=== PATIENT | female | born 1930 | race Asian ===

== ENCOUNTER 2016-09-11 08:16 | Inpatient (IN) | payer MEDICARE, MEDICAID ==
[~2016-09-11] VITALS: Ht 152.4 cm; Wt 76.9 kg
[~2016-09-11 08:16] MED LIST: AMLO5TAB66 PO; FENO48TA4 PO; INSU100C4 SQ; INSU100C6 SQ; LOSA1TAB40 PO; METO-323 PO; OMEP20CA10 PO; PRAV20TA4 PO; SPIR25TA4 PO
[2016-09-11 08:37] LABS: GLUCOSE,POINT OF CARE 294 MG/DL (70-110)
[2016-09-11] MEDS ORDERED: FURO40 PO (08:45)
[2016-09-11] MEDS ORDERED: GABA-529 PO (08:45)
[2016-09-11] MEDS ORDERED: RANI150T7 PO (08:45)
[2016-09-11] MEDS ORDERED: ALBUTEROL SULFATE 2.5 MG/0.5 ML NEB SOLUTION NEB ONE (09:15)
[2016-09-11] MEDS ORDERED: IPRATROPIUM BROMIDE 0.5 MG/2.5 ML NEB SOLUTION NEB ONE (09:15)
[2016-09-11 09:42] LABS: BASOPHILS % (AUTO) 0.3 % (0.0-2.0); EOSINOPHILS % (AUTO) 0.8 % (1.0-6.0); HEMATOCRIT 32.9 % (36-46); HEMOGLOBIN 10.7 g/dL (12.0-16.0); LYMPHOCYTES # (AUTO) 0.8 K/uL (1.0-4.8); LYMPHOCYTES % (AUTO) 8.4 % (22.0-44.0); MEAN CORPUSCULAR HEMOGLOBIN 29.4 pg (26.0-34.0); MEAN CORPUSCULAR HGB CONC 32.6 G/dL (31.0-37.0); MEAN CORPUSCULAR VOLUME 90 fL (80-100); MONOCYTES % (AUTO) 11.1 % (2.0-9.0); NEUTROPHILS # (AUTO) 7.2 K/uL (1.8-7.7); NEUTROPHILS % (AUTO) 79.4 % (40.0-70.0); PLATELET COUNT (AUTO) 254 K/uL (150-450); RED BLOOD CELL COUNT(AUTO) 3.66 MIL/uL (4.00-5.20); WHITE BLOOD COUNT (AUTO) 9.1 K/uL (4.5-11.0)
[2016-09-11 09:57] LABS: CALCIUM, TOTAL 9.1 mg/dL (8.8-10.5); CREATININE 2.45 mg/dL (0.60-1.30); POTASSIUM 4.1 mmol/L (3.5-5.1)
[2016-09-11 10:02] LABS: BILIRUBIN,TOTAL 0.8 mg/dL (0.1-1.0)
[2016-09-11 10:03] LABS: APPEARANCE,URINE CLEAR (CLEAR); GLUCOSE, URINE (UA) >=1000 mg/dL (NEGATIVE); KETONES,URINE NEGATIVE (NEGATIVE); LEUKOCYTE ESTERASE ,URINE NEGATIVE (NEGATIVE); OCCULT BLOOD,URINE SMALL (NEGATIVE); PROTEIN,URINE SEE CONFIRM (NEGATIVE)
[2016-09-11 10:34] LABS: ADD UA MICROSCOPIC YES
[2016-09-11 10:40] LABS: RBC,URINE 0-2 /HPF (0-2)
[2016-09-11 10:41] LABS: WBC,URINE 0-2 /HPF (0-5)
[2016-09-11 10:42] LABS: SQUAMOUS EPITHELIAL CELL,UR Rare /LPF (None Seen); SULFOSALICYLIC ACID,URINE 2+ (Negative)
[2016-09-11] MEDS ORDERED: LEVOFLOXACIN 750 MG/D5% WATER 150 ML IV ONE (13:15)
[2016-09-11 13:57] LABS: INFLUENZA TYPE B NEGATIVE FOR TYPE B (NEGATIVE)
[2016-09-11] MEDS ORDERED: FUROSEMIDE 40 MG/4 ML VIAL IVP ONE (15:00)
[2016-09-11] MEDS ORDERED: NITROGLYCERIN 2% (1 GM=INCH) PACKET TP ONE (15:00)
[2016-09-11] MEDS ORDERED: AZITHROMYCIN 250 MG in SODIUM CHLORIDE 0.9% 150 ML IV SCH (15:15)
[2016-09-11] MEDS ORDERED: ONDANSETRON HCL 4 MG/2 ML VIAL IVP PRN ×2 (15:45→17:00)
[2016-09-11] MEDS ORDERED: ACETAMINOPHEN 325 MG TABLET PO PRN ×2 (15:45→17:00)
[2016-09-11] MEDS ORDERED: INSULIN ASPART 100 UNITS/ML SQ PRN (15:45)
[2016-09-11] MEDS ORDERED: 0.9% SODIUM CHLORIDE 10 ML SYRINGE IVP PRN ×3 (15:45→17:00)
[2016-09-11] MEDS ORDERED: DEXTROSE 50%-WATER 25 GM/50 ML SYRINGE IVP PRN (15:45)
[2016-09-11 16:01] VITALS: BP 141/69
[2016-09-11] MEDS ORDERED: SODIUM CHLORIDE 0.9% 100 ML ONE (16:50)
[2016-09-11] MEDS: CefTRIAXone 1 GM/DEXTROSE 50 ML IV SCH (16:53)
[2016-09-11] MEDS ORDERED: IPRATROPIUM BROMIDE 0.5 MG/2.5 ML NEB SOLUTION NEB PRN (17:00)
[2016-09-11] MEDS ORDERED: HYDROCODONE/ACETAMINOPHEN 5-325 MG TABLET PO PRN (17:00)
[2016-09-11] MEDS ORDERED: CefTRIAXone 1 GM/DEXTROSE 50 ML IV SCH (17:00)
[2016-09-11] MEDS ORDERED: ALBUTEROL SULFATE 2.5 MG/0.5 ML NEB SOLUTION NEB PRN (17:00)
[2016-09-11] MEDS ORDERED: BENZONATATE 100 MG CAPSULE PO PRN (17:00)
[2016-09-11] MEDS ORDERED: ZOLPIDEM TARTRATE 5 MG TABLET PO PRN (17:00)
[2016-09-11] MEDS ORDERED: AZITHROMYCIN 500 MG/NS 250 ML IV SCH (18:00)
[2016-09-11] MEDS: METOPROLOL SUCCINATE 25 MG ER TABLET PO SCH (18:07)
[2016-09-11] MEDS: INSULIN REGULAR, HUMAN 100 UNITS/ML SQ PRN ×2 (18:09→21:27)
[2016-09-11 19:41] VITALS: BP 113/50
[2016-09-11] MEDS ORDERED: ALBUTEROL SULFATE 2.5 MG/0.5 ML NEB SOLUTION NEB SCH (20:00)
[2016-09-11] MEDS ORDERED: IPRATROPIUM BROMIDE 0.5 MG/2.5 ML NEB SOLUTION NEB SCH (20:00)
[2016-09-11] MEDS: DOCUSATE SODIUM 250 MG CAPSULE PO SCH (20:59)
[2016-09-11] MEDS: HEPARIN SODIUM,PORCINE 5,000 UNITS/ML VIAL SQ SCH (20:59)
[2016-09-11] MEDS: GuaiFENesin SR 600 MG ER TABLET PO SCH (20:59)
[2016-09-11] MEDS: ATORVASTATIN CALCIUM 20 MG TABLET PO SCH (20:59)
[2016-09-11] MEDS: GABAPENTIN 100 MG CAPSULE PO SCH (21:03)
[2016-09-12 00:01] VITALS: BP 147/80
[2016-09-12 05:01] LABS: GLUCOSE COMMENT 1 Received Meds; GLUCOSE,POINT OF CARE 203 MG/DL (70-110)
[2016-09-12 05:23] VITALS: BP 127/60
[2016-09-12 06:11] LABS: BASOPHILS % (AUTO) 0.3 % (0.0-2.0); HEMATOCRIT 28.9 % (36-46); HEMOGLOBIN 9.5 g/dL (12.0-16.0); LYMPHOCYTES # (AUTO) 0.9 K/uL (1.0-4.8); LYMPHOCYTES % (AUTO) 10.8 % (22.0-44.0); MEAN CORPUSCULAR HEMOGLOBIN 29.5 pg (26.0-34.0); MEAN CORPUSCULAR HGB CONC 32.9 G/dL (31.0-37.0); MEAN CORPUSCULAR VOLUME 90 fL (80-100); MONOCYTES # (AUTO) 0.8 K/uL (0.1-1.0); MONOCYTES % (AUTO) 9.5 % (2.0-9.0); NEUTROPHILS # (AUTO) 6.7 K/uL (1.8-7.7); NEUTROPHILS % (AUTO) 78.4 % (40.0-70.0); PLATELET COUNT (AUTO) 239 K/uL (150-450); RED BLOOD CELL COUNT(AUTO) 3.22 MIL/uL (4.00-5.20); RED CELL DISTRIBUTION WIDTH 12.9 % (11.5-14.5); WHITE BLOOD COUNT (AUTO) 8.6 K/uL (4.5-11.0)
[2016-09-12 06:27] LABS: INR 1.1 (0.9-1.1); PROTHROMBIN TIME 11.1 SEC (9.4-11.6)
[2016-09-12 06:50] LABS: ALBUMIN 2.4 g/dL (3.4-5.0); BILIRUBIN,TOTAL 0.5 mg/dL (0.1-1.0); CALCIUM, TOTAL 8.6 mg/dL (8.8-10.5); CHOL/HDL RATIO 2.9 (3.9-5.7); CREATININE 2.52 mg/dL (0.60-1.30); POTASSIUM 4.2 mmol/L (3.5-5.1); THYROID STIMULATING HORMONE 1.84 uIU/mL (0.36-3.74); TOTAL PROTEIN, SERUM 6.7 g/dL (6.4-8.2)
[2016-09-12 07:21] VITALS: BP 138/82
[2016-09-12 07:23] LABS: GLUCOSE,POINT OF CARE 138 MG/DL (70-110)
[2016-09-12 07:40] LABS: HEMOGLOBIN A1C 9.7 % (4.5-6.2)
[2016-09-12] MEDS ORDERED: HYDROCHLOROTHIAZIDE 25 MG TABLET PO SCH (09:00)
[2016-09-12] MEDS ORDERED: FUROSEMIDE 40 MG TABLET PO SCH (09:00)
[2016-09-12] MEDS: GABAPENTIN 100 MG CAPSULE PO SCH ×3 (09:21→22:37)
[2016-09-12] MEDS: LOSARTAN POTASSIUM 50 MG TABLET PO SCH (09:22)
[2016-09-12] MEDS: METOPROLOL SUCCINATE 25 MG ER TABLET PO SCH (09:22)
[2016-09-12] MEDS: DOCUSATE SODIUM 250 MG CAPSULE PO SCH ×3 (09:23→21:00)
[2016-09-12] MEDS: AmLODIPine BESYLATE 5 MG TABLET PO SCH (09:23)
[2016-09-12] MEDS: GuaiFENesin SR 600 MG ER TABLET PO SCH ×2 (09:24→22:37)
[2016-09-12] MEDS: HEPARIN SODIUM,PORCINE 5,000 UNITS/ML VIAL SQ SCH ×2 (09:25→22:37)
[2016-09-12] MEDS ORDERED: FUROSEMIDE 40 MG/4 ML VIAL IVP SCH (10:15)
[2016-09-12 10:58] VITALS: BP 135/65
[2016-09-12 11:27] LABS: GLUCOSE,POINT OF CARE 218 MG/DL (70-110)
[2016-09-12] MEDS: INSULIN REGULAR, HUMAN 100 UNITS/ML SQ PRN (12:09)
[2016-09-12 15:50] VITALS: BP 130/61
[2016-09-12] MEDS: CefTRIAXone 1 GM/DEXTROSE 50 ML IV SCH (16:57)
[2016-09-12] MEDS: INSULIN DETEMIR 100 UNITS/ML SQ SCH (17:12)
[2016-09-12] MEDS ORDERED: DEXTROSE 50%-WATER 25 GM/50 ML SYRINGE IVP PRN (18:00)
[2016-09-12] MEDS: INSULIN ASPART 100 UNITS/ML SQ PRN (18:06)
[2016-09-12] MEDS: AZITHROMYCIN 250 MG in SODIUM CHLORIDE 0.9% 150 ML IV SCH (18:10)
[2016-09-12 19:34] VITALS: BP 104/58
[2016-09-12] MEDS: ATORVASTATIN CALCIUM 20 MG TABLET PO SCH (22:36)
[2016-09-13] VITALS: BP 123/53
[2016-09-13 04:23] VITALS: BP 120/63
[2016-09-13 07:52] VITALS: BP 117/59
[2016-09-13 08:02] LABS: GLUCOSE COMMENT 1 Received Meds; GLUCOSE,POINT OF CARE 154 MG/DL (70-110)
[2016-09-13 08:03] LABS: ALBUMIN 2.4 g/dL (3.4-5.0); BILIRUBIN,TOTAL 0.4 mg/dL (0.1-1.0); CALCIUM, TOTAL 8.8 mg/dL (8.8-10.5); CREATININE 3.03 mg/dL (0.60-1.30); POTASSIUM 3.8 mmol/L (3.5-5.1); TOTAL PROTEIN, SERUM 6.9 g/dL (6.4-8.2)
[2016-09-13 08:07] LABS: GLUCOSE,POINT OF CARE 120 MG/DL (70-110)
[2016-09-13] MEDS: HEPARIN SODIUM,PORCINE 5,000 UNITS/ML VIAL SQ SCH ×2 (08:22→21:25)
[2016-09-13] MEDS: AmLODIPine BESYLATE 5 MG TABLET PO SCH (08:24)
[2016-09-13] MEDS: GuaiFENesin SR 600 MG ER TABLET PO SCH ×2 (08:24→21:25)
[2016-09-13] MEDS: DOCUSATE SODIUM 250 MG CAPSULE PO SCH ×3 (08:25→21:00)
[2016-09-13] MEDS: LOSARTAN POTASSIUM 50 MG TABLET PO SCH (08:25)
[2016-09-13] MEDS: GABAPENTIN 100 MG CAPSULE PO SCH ×3 (08:25→21:25)
[2016-09-13] MEDS: METOPROLOL SUCCINATE 25 MG ER TABLET PO SCH (08:25)
[2016-09-13] MEDS: FUROSEMIDE 40 MG TABLET PO SCH (08:25)
[2016-09-13 08:27] LABS: APPEARANCE,URINE CLOUDY (CLEAR); GLUCOSE, URINE (UA) NEGATIVE (NEGATIVE); KETONES,URINE NEGATIVE (NEGATIVE); LEUKOCYTE ESTERASE ,URINE TRACE (NEGATIVE); OCCULT BLOOD,URINE LARGE (NEGATIVE); PROTEIN,URINE POS 1+ (NEGATIVE)
[2016-09-13] MEDS: INSULIN DETEMIR 100 UNITS/ML SQ SCH (08:31)
[2016-09-13 08:47] LABS: RBC,URINE 51-100 /HPF (0-2); SQUAMOUS EPITHELIAL CELL,UR Rare /LPF (None Seen)
[2016-09-13 10:59] VITALS: BP 109/51
[2016-09-13] MEDS: INSULIN ASPART 100 UNITS/ML SQ PRN ×2 (12:02→21:30)
[2016-09-13] MEDS ORDERED: ERGOCALCIFEROL (VIT D2) 50,000 UNITS CAPSULE PO SCH (13:00)
[2016-09-13] MEDS: ASPIRIN 81 MG EC TABLET PO SCH (13:55)
[2016-09-13] MEDS: LORazepam 2 MG/ML VIAL IVP PRN (13:56)
[2016-09-13 16:21] VITALS: BP 102/47
[2016-09-13] MEDS ORDERED: SODIUM CHLORIDE 0.9% 100 ML ONE (16:26)
[2016-09-13] MEDS: CefTRIAXone 1 GM/DEXTROSE 50 ML IV SCH (16:29)
[2016-09-13] MEDS: ACARBOSE 50 MG TABLET PO SCH (18:24)
[2016-09-13] MEDS: AZITHROMYCIN 250 MG in SODIUM CHLORIDE 0.9% 150 ML IV SCH (18:27)
[2016-09-13 21:18] VITALS: BP 95/59
[2016-09-13] MEDS: ATORVASTATIN CALCIUM 20 MG TABLET PO SCH (21:25)
[2016-09-14] VITALS (8 sets, daily range): BP systolic 98–140; BP diastolic 42–67
[2016-09-14 05:32] LABS: GLUCOSE,POINT OF CARE 192 MG/DL (70-110)
[2016-09-14 05:37] LABS: GLUCOSE,POINT OF CARE 136 MG/DL (70-110)
[2016-09-14 05:37] LABS: GLUCOSE COMMENT 1 Received Meds; GLUCOSE,POINT OF CARE 138 MG/DL (70-110)
[2016-09-14 05:37] LABS: GLUCOSE COMMENT 1 Received Meds; GLUCOSE,POINT OF CARE 239 MG/DL (70-110)
[2016-09-14] MEDS: INSULIN ASPART 100 UNITS/ML SQ PRN ×4 (06:16→21:34)
[2016-09-14 06:19] LABS: BASOPHILS % (AUTO) 0.5 % (0.0-2.0); EOSINOPHILS % (AUTO) 2.1 % (1.0-6.0); HEMATOCRIT 28.7 % (36-46); HEMOGLOBIN 9.4 g/dL (12.0-16.0); MEAN CORPUSCULAR HEMOGLOBIN 29.3 pg (26.0-34.0); MEAN CORPUSCULAR HGB CONC 32.8 G/dL (31.0-37.0); MEAN CORPUSCULAR VOLUME 89 fL (80-100); MONOCYTES # (AUTO) 0.8 K/uL (0.1-1.0); MONOCYTES % (AUTO) 9.3 % (2.0-9.0); NEUTROPHILS # (AUTO) 6.2 K/uL (1.8-7.7); NEUTROPHILS % (AUTO) 76.1 % (40.0-70.0); PLATELET COUNT (AUTO) 250 K/uL (150-450); RED BLOOD CELL COUNT(AUTO) 3.21 MIL/uL (4.00-5.20); RED CELL DISTRIBUTION WIDTH 12.9 % (11.5-14.5); WHITE BLOOD COUNT (AUTO) 8.2 K/uL (4.5-11.0)
[2016-09-14 06:38] LABS: ALBUMIN 2.3 g/dL (3.4-5.0); BILIRUBIN,TOTAL 0.3 mg/dL (0.1-1.0); CALCIUM, TOTAL 8.6 mg/dL (8.8-10.5); CREATININE 3.44 mg/dL (0.60-1.30); POTASSIUM 4.1 mmol/L (3.5-5.1); TOTAL PROTEIN, SERUM 6.6 g/dL (6.4-8.2)
[2016-09-14] MEDS: INSULIN DETEMIR 100 UNITS/ML SQ SCH (07:46)
[2016-09-14] MEDS: HEPARIN SODIUM,PORCINE 5,000 UNITS/ML VIAL SQ SCH ×2 (07:47→20:35)
[2016-09-14] MEDS: ACARBOSE 50 MG TABLET PO SCH ×3 (07:47→17:33)
[2016-09-14] MEDS: ASPIRIN 81 MG EC TABLET PO SCH (07:48)
[2016-09-14] MEDS: GABAPENTIN 100 MG CAPSULE PO SCH ×3 (07:48→20:35)
[2016-09-14] MEDS: METOPROLOL SUCCINATE 25 MG ER TABLET PO SCH (07:48)
[2016-09-14] MEDS: AmLODIPine BESYLATE 5 MG TABLET PO SCH (07:48)
[2016-09-14] MEDS: GuaiFENesin SR 600 MG ER TABLET PO SCH ×2 (07:48→20:35)
[2016-09-14] MEDS: FUROSEMIDE 40 MG TABLET PO SCH (07:49)
[2016-09-14] MEDS: LORazepam 2 MG/ML VIAL IVP PRN (07:49)
[2016-09-14] MEDS: DOCUSATE SODIUM 250 MG CAPSULE PO SCH ×3 (07:49→20:38)
[2016-09-14] MEDS: LOSARTAN POTASSIUM 50 MG TABLET PO SCH (07:49)
[2016-09-14] MEDS: CefTRIAXone 1 GM/DEXTROSE 50 ML IV SCH (16:04)
[2016-09-14] MEDS: AZITHROMYCIN 250 MG in SODIUM CHLORIDE 0.9% 150 ML IV SCH (17:33)
[2016-09-14] MEDS ORDERED: SODIUM CHLORIDE 0.9% 100 ML ONE (17:36)
[2016-09-14 19:52] LABS: GLUCOSE COMMENT 1 Received Meds; GLUCOSE,POINT OF CARE 223 MG/DL (70-110)
[2016-09-14 19:52] LABS: GLUCOSE COMMENT 1 Received Meds; GLUCOSE,POINT OF CARE 205 MG/DL (70-110)
[2016-09-14 19:57] LABS: GLUCOSE COMMENT 1 Received Meds; GLUCOSE,POINT OF CARE 209 MG/DL (70-110)
[2016-09-14] MEDS: ATORVASTATIN CALCIUM 20 MG TABLET PO SCH (20:35)
[2016-09-15 02:02] LABS: GLUCOSE COMMENT 1 Received Meds; GLUCOSE,POINT OF CARE 184 MG/DL (70-110)
[2016-09-15 04:00] VITALS: BP 108/72
[2016-09-15] MEDS: INSULIN ASPART 100 UNITS/ML SQ PRN ×2 (06:11→12:24)
[2016-09-15 07:09] LABS: ALBUMIN 2.4 g/dL (3.4-5.0); BILIRUBIN,TOTAL 0.2 mg/dL (0.1-1.0); CALCIUM, TOTAL 8.7 mg/dL (8.8-10.5); CREATININE 3.21 mg/dL (0.60-1.30); MAGNESIUM 2.2 mg/dL (1.80-2.40); PHOSPHORUS 4.8 mg/dL (2.5-4.9); TOTAL PROTEIN, SERUM 6.8 g/dL (6.4-8.2)
[2016-09-15 07:26] LABS: BASOPHILS # (AUTO) 0.09 K/uL (0.00-0.20); BASOPHILS % (AUTO) 1.5 % (0.0-2.0); EOSINOPHILS # (AUTO) 0.26 K/uL (0.00-0.70); EOSINOPHILS % (AUTO) 4.17 % (1.0-6.0); HEMATOCRIT 29.7 % (36-46); HEMOGLOBIN 9.2 g/dL (12.0-16.0); LYMPHOCYTES # (AUTO) 0.9 K/uL (1.0-4.8); LYMPHOCYTES % (AUTO) 14.6 % (22.0-44.0); MEAN CORPUSCULAR HEMOGLOBIN 27.2 pg (26.0-34.0); MEAN CORPUSCULAR VOLUME 88 fL (80-100); MONOCYTES # (AUTO) 0.6 K/uL (0.1-1.0); MONOCYTES % (AUTO) 9.8 % (2.0-9.0); NEUTROPHILS # (AUTO) 4.4 K/uL (1.8-7.7); PLATELET COUNT (AUTO) 213 K/uL (150-450); RED BLOOD CELL COUNT(AUTO) 3.39 MIL/uL (4.00-5.20); RED CELL DISTRIBUTION WIDTH 12.8 % (11.5-14.5); WHITE BLOOD COUNT (AUTO) 6.3 K/uL (4.5-11.0)
[2016-09-15 07:31] LABS: GLUCOSE COMMENT 1 Received Meds; GLUCOSE,POINT OF CARE 150 MG/DL (70-110)
[2016-09-15 07:34] VITALS: BP 124/59
[2016-09-15] MEDS: ASPIRIN 81 MG EC TABLET PO SCH (09:22)
[2016-09-15] MEDS: METOPROLOL SUCCINATE 25 MG ER TABLET PO SCH (09:22)
[2016-09-15] MEDS: GuaiFENesin SR 600 MG ER TABLET PO SCH (09:23)
[2016-09-15] MEDS: GABAPENTIN 100 MG CAPSULE PO SCH (09:23)
[2016-09-15] MEDS: HEPARIN SODIUM,PORCINE 5,000 UNITS/ML VIAL SQ SCH (09:23)
[2016-09-15] MEDS: ACARBOSE 50 MG TABLET PO SCH ×2 (09:23→12:24)
[2016-09-15] MEDS: DOCUSATE SODIUM 250 MG CAPSULE PO SCH (09:23)
[2016-09-15] MEDS: AmLODIPine BESYLATE 5 MG TABLET PO SCH (09:23)
[2016-09-15] MEDS: INSULIN DETEMIR 100 UNITS/ML SQ SCH (09:33)
[2016-09-15] MEDS ORDERED: CHOL200018 PO (10:20)
[2016-09-15] MEDS ORDERED: AMOX125T PO (10:22)
[2016-09-15] MEDS ORDERED: GUAIFDM PO (10:23)
[2016-09-15] MEDS ORDERED: BENZ-26 PO (10:25)
[2016-09-15] MEDS ORDERED: ATOR20TA86 PO (10:25)
[2016-09-15] MEDS ORDERED: INSLAN SQ (10:26)
[2016-09-15] MEDS ORDERED: ACAR50TA11 PO (10:29)
[2016-09-15] MEDS ORDERED: ASPI-1093 PO (10:29)
[2016-09-15 11:18] VITALS: BP_SYST 122; BP_DIAS 55; BP_DIAS 68
[2016-09-15 20:17] LABS: GLUCOSE,POINT OF CARE 219 MG/DL (70-110)
[2016-09-15 20:17] LABS: GLUCOSE,POINT OF CARE 188 MG/DL (70-110)
[2016-09-16 12:09] LABS: ORGANISM ID Not indicated.
[2016-09-26 16:48] LABS: GLUCOSE,POINT OF CARE 254 MG/DL (70-110)
== END 2016-09-15 13:45 | disposition home or self-care (01) | DRG 193 ==
LOC: EMS 08:17 → 5N 14:05
PROVIDERS: ADMIT Internal Medicine; ATTEND Internal Medicine
DX: J18.9 Pneumonia, unspecified organism (principal); J96.01 Acute respiratory failure with hypoxia; E43 Unspecified severe protein-calorie malnutrition; I13.0 Hypertensive heart and chronic kidney disease with heart failure and stage 1 through stage 4 chronic kidney disease, or unspecified chronic kidney disease; N18.4 Chronic kidney disease, stage 4 (severe); I50.32 Chronic diastolic (congestive) heart failure; N17.9 Acute kidney failure, unspecified; E11.22 Type 2 diabetes mellitus with diabetic chronic kidney disease; I77.810 Thoracic aortic ectasia; E78.5 Hyperlipidemia, unspecified; E55.9 Vitamin D deficiency, unspecified; E66.9 Obesity, unspecified; M47.814 Spondylosis without myelopathy or radiculopathy, thoracic region; E11.65 Type 2 diabetes mellitus with hyperglycemia; G89.29 Other chronic pain; D63.1 Anemia in chronic kidney disease; Z79.4 Long term (current) use of insulin; Z79.899 Other long term (current) drug therapy; Z90.710 Acquired absence of both cervix and uterus
CPT/HCPCS: 51701; 71020; 71250; 82306; 82570; 82962; 83036; 83735; 83970; 84100; 84145; 84156; 84300; 84443; 84540; 87040; 87070; 87147; 87205; 87449; 87804; 87899; 93005; 93306; 94640; 96365; 96375; 99285; J0456; J0696; J1644; J1940; J1956; J2060; J7050

== ENCOUNTER 2016-10-27 16:17 | Emergency (ER) | payer MEDICARE, MEDICAID ==
[~2016-10-27] VITALS: Ht 144.8 cm; Wt 68.2 kg
[~2016-10-27 16:17] MED LIST changes: +ACAR50TA11 PO; +AMOX125T PO; +ASPI-1093 PO; +ATOR20TA86 PO; +BENZ-26 PO; +CHOL200018 PO; -FENO48TA4 PO; +GABA-529 PO; +GUAIFDM PO; +INSLAN SQ; -INSU100C4 SQ; -LOSA1TAB40 PO; -OMEP20CA10 PO; -PRAV20TA4 PO; +RANI150T7 PO; -SPIR25TA4 PO
[2016-10-27 17:18] LABS: GLUCOSE,POINT OF CARE 218 MG/DL (70-110)
[2016-10-27 22:54] VITALS: BP 144/78
== END 2016-10-27 23:30 | disposition home or self-care (01) ==
LOC: EMS 16:19
DX: S00.03XA Contusion of scalp, initial encounter (principal); S49.92XA Unspecified injury of left shoulder and upper arm, initial encounter; E11.22 Type 2 diabetes mellitus with diabetic chronic kidney disease; I13.0 Hypertensive heart and chronic kidney disease with heart failure and stage 1 through stage 4 chronic kidney disease, or unspecified chronic kidney disease; I50.9 Heart failure, unspecified; N18.9 Chronic kidney disease, unspecified; Z79.82 Long term (current) use of aspirin; Z79.4 Long term (current) use of insulin; W19.XXXA Unspecified fall, initial encounter; Y93.89 Activity, other specified; Y92.091 Bathroom in other non-institutional residence as the place of occurrence of the external cause; Y99.8 Other external cause status
CPT/HCPCS: 70450; 82962; 99284